=== PATIENT | female | born 1950 | race Caucasian/White ===

== ENCOUNTER → 2016-09-03 | Outpatient (CLI) | payer MEDICARE, OTHER ==
[~2016-09-03] MED LIST: ALAVERT10 MG PO; FISH OIL 1,2001 EAC3 PO; IBANDRONATE SO150 MG PO; LANSOPRAZOLE30 MG PO; LEXAPRO10 MG PO; NADOLOL40 MG PO; PLAVIX75 MG PO; TIMOPTIC-0100 DROP/1 BOTH EARS; VYTORIN 10/41 TABLET PO
== END | disposition home or self-care (01) ==
LOC: CDC 09:54
DX: R94.31 Abnormal electrocardiogram [ECG] [EKG] (principal); N20.0 Calculus of kidney
CPT/HCPCS: 93000

== ENCOUNTER 2016-11-01 17:15 | Inpatient (IN) | payer OTHER ==
[~2016-11-01] VITALS: Ht 170.2 cm; Wt 75.1 kg
[2016-11-01 18:13] LABS: HEMATOCRIT 38.7 % (36.0-46.0); MCH 29.6 PG (29.0-34.0); MCHC 34.4 G/DL (30.0-36.0); MEAN PLAT.VOLUME 9.2 uM^3 (9.5-12.4); PLATELET COUNT 206 K/uL (156-360); RBC DIS.WIDTH-CV 13.7 % (11.8-14.6); RBC DIS.WIDTH-SD 42.8 % (39-53); WHITE BLOOD COUNT 12.2 K/uL (4.1-10.2)
[2016-11-01 18:14] LABS: ADD MIUA? YES; BILIRUBIN NEGATIVE; BLOOD LARGE; COLOR YELLOW ((YELLOW)); GLUCOSE (STRIP) NEGATIVE; KETONES NEGATIVE; LEUKOCYTES TRACE; NITRITE NEGATIVE; PROTEIN (STRIP) 100; SPECIFIC GRAVITY 1.019 (1.000-1.030); UROBILINOGEN 0.2 MG/DL (0.2-1.0)
[2016-11-01 18:23] LABS: CHLORIDE 105 mEq/L (99-109); POTASSIUM 4.1 mEq/L (3.7-5.4); SODIUM 139 mEq/L (136-147)
[2016-11-01 18:24] LABS: GLUCOSE 121 mg/dL (70-99)
[2016-11-01 18:26] LABS: ANION GAP 11 MEQ/L (2-14)
[2016-11-01 18:28] LABS: GFR ESTIMATE (CALCULATED) 48 mL/min/
[2016-11-01 18:29] LABS: UREA NITROGEN (BUN) 16 mg/dL (9-23)
[2016-11-01 18:55] LABS: BACTERIA RARE /HPF; CALCIUM OXALATE CRYSTALS 3+ /HPF; EPITHELIAL CELLS NONE SEEN /HPF; MUCUS TRACE /LPF; RED BLOOD CELLS TNTC /HPF (0-5); UCUL ADDED? NO; WHITE BLOOD CELLS 20-30 /HPF (0-5)
[2016-11-01 21:12] LABS: ALKALINE PHOSPHATASE 43 IU/L (3-129)
[2016-11-01 21:14] LABS: DIRECT BILIRUBIN 0.6 mg/dL (0.0-0.3)
[2016-11-01 21:15] LABS: LIPASE 39 U/L (1.0-51.0)
[2016-11-01] MEDS ORDERED: LANSOPRAZOLE30 MG PO (23:08)
[2016-11-01] MEDS ORDERED: TIMOPTIC-0100 DROP/1 BOTH EYES (23:08)
[2016-11-01] MEDS ORDERED: METFORMIN HCL1000 MG PO (23:09)
[2016-11-01] MEDS ORDERED: VITAMIN D5000 UNI1 PO (23:09)
[2016-11-01] MEDS ORDERED: VITAMIN E400 UNIT PO (23:09)
[2016-11-01] MEDS ORDERED: CRESTOR40 MG PO (23:09)
[2016-11-01] MEDS ORDERED: LISINOPRIL10 MG PO (23:10)
[2016-11-02 01:09] VITALS: BP 139/69
[2016-11-02 03:59] VITALS: BP 141/76
[2016-11-02 05:48] LABS: HEMATOCRIT 35.8 % (36.0-46.0); MCH 29.5 PG (29.0-34.0); MCHC 34.1 G/DL (30.0-36.0); MCV 86.5 FL (83-99); MEAN PLAT.VOLUME 9.5 uM^3 (9.5-12.4); PLATELET COUNT 167 K/uL (156-360); RBC DIS.WIDTH-CV 13.9 % (11.8-14.6); RED BLOOD COUNT 4.14 M/uL (3.80-5.20); WHITE BLOOD COUNT 9.7 K/uL (4.1-10.2)
[2016-11-02 06:16] LABS: ANION GAP 8 MEQ/L (2-14); CHLORIDE 108 MEQ/L (99-109); GFR ESTIMATE (CALCULATED) > 59 mL/min/; GLUCOSE 127 mg/dL (70-99); POTASSIUM 4.3 MEQ/L (3.7-5.4); SAMPLE HEMOLYSIS CHECK 0; SAMPLE ICTERIC CHECK 0; SAMPLE LIPEMIA CHECK 0; SODIUM 143 MEQ/L (136-147); UREA NITROGEN (BUN) 14 mg/dL (9-23)
[2016-11-02 06:44] LABS: POINT-OF-CARE METER ID UU14188625
[2016-11-02 08:58] VITALS: BP 100/59
[2016-11-02 12:33] LABS: POINT-OF-CARE METER ID UU13113675
[2016-11-02 15:14] VITALS: BP 115/65
[2016-11-02 16:21] LABS: POINT-OF-CARE METER ID UU14188625
[2016-11-02] MEDS ORDERED: LEVAQUIN500 MG PO (17:40)
[2016-11-02] MEDS ORDERED: TRAMADOL HCL50 MG PO (17:40)
== END 2016-11-02 18:14 | disposition home or self-care (01) | DRG 690 ==
LOC: EME 17:15 → 5SOUTH 23:02 → EDOF 23:02 → 5SOUTH 11-02 00:54
PROVIDERS: Hospitalist; Physician Assistant Medical
DX: N13.6 Pyonephrosis (principal); E78.5 Hyperlipidemia, unspecified; I10 Essential (primary) hypertension; F41.9 Anxiety disorder, unspecified; N17.9 Acute kidney failure, unspecified; K21.9 Gastro-esophageal reflux disease without esophagitis; R31.9 Hematuria, unspecified; E11.649 Type 2 diabetes mellitus with hypoglycemia without coma; R60.9 Edema, unspecified; E80.6 Other disorders of bilirubin metabolism; K80.20 Calculus of gallbladder without cholecystitis without obstruction; Z86.73 Personal history of transient ischemic attack (TIA), and cerebral infarction without residual deficits; Z98.890 Other specified postprocedural states; Z87.442 Personal history of urinary calculi; Z90.49 Acquired absence of other specified parts of digestive tract; Z90.710 Acquired absence of both cervix and uterus
CPT/HCPCS: 74000; 74176; 76000; 80048; 80076; 81003; 82948; 83690; 85027; 87086; 99281; 99285; C1876; J0131; J0692; J0696; J1100; J1200; J1644; J1815; J2060; J2250; J2405; J2765; J3010; J7030; J7050

== ENCOUNTER 2017-01-10 06:21 | Day surgery (SDC) | payer OTHER ==
[~2017-01-10] VITALS: Ht 170.2 cm; Wt 73.0 kg
[~2017-01-10 06:21] MED LIST changes: +CRESTOR40 MG PO; +FLOMAX0.4 MG PO; +LEVAQUIN500 MG PO; +LISINOPRIL10 MG PO; +METFORMIN HCL1000 MG PO; +TIMOPTIC-0100 DROP/1 BOTH EYES; +TRAMADOL HCL50 MG PO; +VITAMIN D5000 UNI1 PO; +VITAMIN E400 UNIT PO
[2017-01-10 07:06] VITALS: BP 129/77
[2017-01-10 07:11] LABS: POINT-OF-CARE METER ID UU14174212
[2017-01-10 09:14] LABS: POINT-OF-CARE METER ID UU13113675
[2017-01-10 10:10] VITALS: BP 116/66
[2017-01-10 10:56] VITALS: BP 130/74
== END 2017-01-10 11:15 | disposition home or self-care (01) ==
LOC: SDC 06:21
PROVIDERS: Urology
DX: N20.1 Calculus of ureter (principal)
CPT/HCPCS: 74420; 82948; J0690; J1100; J1580; J2405; J2765; J3010

== ENCOUNTER 2017-12-03 09:10 | Emergency (ER) | payer OTHER ==
[~2017-12-03] VITALS: Ht 170.2 cm; Wt 82.0 kg
[2017-12-03 09:51] LABS: BASOPHIL (%) 0.5 % (0-1); BASOPHIL COUNT 0.1 K/uL (0-0.1); EOSINOPHIL (%) 1.2 % (0-5); EOSINOPHIL COUNT 0.1 K/uL (0-0.3); HEMATOCRIT 41.6 % (36.0-46.0); IMMATURE GRANULOCYTE (%) 0.4 % (0.0-0.7); LYMPHOCYTE (%) 27.4 % (15-42); MCH 28.6 PG (29.0-34.0); MCHC 33.7 G/DL (30.0-36.0); MCV 84.9 FL (83-99); MONOCYTE (%) 5.3 % (3-12); MONOCYTE COUNT 0.6 K/uL (0-0.8); NEUTROPHIL (%) 65.2 % (45-76); PLATELET COUNT 202 K/uL (156-360); RBC DIS.WIDTH-CV 14.6 % (11.8-14.6); RBC DIS.WIDTH-SD 45.6 % (39-53); WHITE BLOOD COUNT 10.8 K/uL (4.1-10.2)
[2017-12-03 10:09] LABS: ALBUMIN 4.1 g/dL (3.2-4.8)
[2017-12-03 10:10] LABS: CHLORIDE 105 mEq/L (99-109); POTASSIUM 4.1 mEq/L (3.7-5.4); SODIUM 140 mEq/L (136-147)
[2017-12-03 10:11] LABS: APPEARANCE CLEAR ((CLEAR)); BILIRUBIN NEGATIVE; BLOOD SMALL; COLOR YELLOW ((YELLOW)); GLUCOSE (STRIP) NEGATIVE; KETONES NEGATIVE; LEUKOCYTES NEGATIVE; NITRITE NEGATIVE; PROTEIN (STRIP) 100; SPECIFIC GRAVITY 1.023 (1.000-1.030)
[2017-12-03 10:12] LABS: GLUCOSE 127 mg/dL (70-99); TOTAL PROTEIN 7.2 g/dL (6.4-8.3)
[2017-12-03 10:15] LABS: ALKALINE PHOSPHATASE 44 IU/L (3-129)
[2017-12-03 10:16] LABS: CREATININE 1.1 mg/dL (0.6-1.3); GFR ESTIMATE (CALCULATED) 53 mL/min/
[2017-12-03 10:17] LABS: AST (GOT) 20 IU/L (2-34); TROP-I INTERPRETATION NEGATIVE; TROPONIN-I < 0.01 ng/mL (0.0-0.30); UREA NITROGEN (BUN) 15 mg/dL (9-23)
[2017-12-03 10:19] LABS: ALT (GPT) 19 IU/L (3-49)
[2017-12-03 10:25] LABS: BACTERIA NONE SEEN /HPF; EPITHELIAL CELLS RARE /HPF; HYALINE CASTS 0-5 /LPF; MUCUS TRACE /LPF; UCUL ADDED? YES
[2017-12-03] MEDS ORDERED: MECLIZINE HCL25 MG PO (13:15)
[2017-12-03] MEDS ORDERED: ZOFRAN ODT4 MG PO (13:15)
[2017-12-03 14:00] VITALS: BP 101/64
== END 2017-12-03 14:01 | disposition home or self-care (01) ==
LOC: EME 09:10
PROVIDERS: Emergency Medicine
DX: R42 Dizziness and giddiness (principal); R11.2 Nausea with vomiting, unspecified; E78.5 Hyperlipidemia, unspecified; E11.9 Type 2 diabetes mellitus without complications; Z79.84 Long term (current) use of oral hypoglycemic drugs; Z90.49 Acquired absence of other specified parts of digestive tract; Z88.5 Allergy status to narcotic agent; Z88.6 Allergy status to analgesic agent; Z88.8 Allergy status to other drugs, medicaments and biological substances
CPT/HCPCS: 70551; 80053; 81003; 84484; 85025; 87086; 93005; 99281; 99284; J2405; J7030